=== PATIENT | female | born 1955 ===

== ENCOUNTER 2017-11-22 12:00 | Inpatient (IN) | payer OTHER ==
[~2017-11-22] VITALS: Ht 157.5 cm; Wt 68.0 kg
[~2017-11-22 12:00] MED LIST: BENADRYL25 MG PO; LAXATIVE FEMININ5 MG PO; MIRALAX17 GM PO; RECTICARE30 GM TOP; ULTRACET PO
[2017-11-22] MEDS ORDERED: PANADOL EXTRA500 MG PO (12:31)
[2017-11-30] MEDS ORDERED: MOUTHWASH-OM240 ML MM (13:00)
[2017-11-30] MEDS ORDERED: LOSARTAN POTASS25 MG PO (13:01)
[2017-11-30] MEDS ORDERED: PERCOCET 5-3251 EACH PO (13:01)
== END 2017-11-30 14:20 | disposition home or self-care (01) | DRG 329 ==
LOC: O/R 11-27 06:10 → SURH 11-27 06:10 → O/R 11-27 12:46 → SURH 11-28 08:24 → MEDI 11-28 08:24 → SURH 11-30 14:20
PROVIDERS: Surgery
PROC: 0DJD8ZZ Inspection of Lower Intestinal Tract, Via Natural or Artificial Opening Endoscopic (ICD-10-PCS; 2017-11-27)
PROC: 4A033R1 Measurement of Arterial Saturation, Peripheral, Percutaneous Approach (ICD-10-PCS; 2017-11-27)
PROC: 0DTN4ZZ Resection of Sigmoid Colon, Percutaneous Endoscopic Approach (ICD-10-PCS; principal; 2017-11-27 12:00)
PROC: B246ZZZ Ultrasonography of Right and Left Heart (ICD-10-PCS; 2017-11-28)
PROC: 4A12X4Z Monitoring of Cardiac Electrical Activity, External Approach (ICD-10-PCS; 2017-11-29)
DX: K57.32 Diverticulitis of large intestine without perforation or abscess without bleeding (principal); J95.821 Acute postprocedural respiratory failure; J81.0 Acute pulmonary edema; I11.9 Hypertensive heart disease without heart failure; K59.02 Outlet dysfunction constipation; Z91.040 Latex allergy status; R73.01 Impaired fasting glucose

== ENCOUNTER 2019-02-07 06:00 | Day surgery (SDC) | payer OTHER ==
[~2019-02-07 06:00] MED LIST changes: +LOSARTAN POTASS25 MG PO; +MOUTHWASH-OM240 ML MM; +PANADOL EXTRA500 MG PO; +PERCOCET 5-3251 EACH PO
== END 2019-02-07 10:05 | disposition home or self-care (01) ==
LOC: AMB-ENDOS 06:00 → CIR.AMB 12:35
DX: D12.2 Benign neoplasm of ascending colon (principal)